=== PATIENT | male | born 1955 | race Caucasian/White ===

== ENCOUNTER 2017-01-04 19:45 | Observation (INO) | payer OTHER, BC ==
[2017-01-04] MEDS ORDERED: Morphine 10 MG/ML Syringe IV ONE (19:52)
[2017-01-04] MEDS ORDERED: Ondansetron 4 MG/2 ML SDV IVPUSH ONE (19:52)
[2017-01-04] MEDS ORDERED: Diphtheria,Pertussis(Acell),Tetanus Vaccine 0.5 ML Syringe IM ONE (19:53)
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
[2017-01-04] MEDS ORDERED: Morphine 2 MG/ML Syringe IVPUSH ONE (20:08)
[2017-01-04] MEDS ORDERED: ceFAZolin 2 GM in Premix Bag 1 BAG IV ONE (21:03)
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
[2017-01-04] MEDS ORDERED: Lactated Ringers 1,000 ML IV SCH (21:30)
[2017-01-04] MEDS ORDERED: Acetaminophen/HYDROcodone 325-10 MG Tab PO PRN (21:30)
[2017-01-04] MEDS ORDERED: Ondansetron 4 MG/2 ML SDV IVPUSH PRN (21:30)
[2017-01-04] MEDS ORDERED: HYDROmorphone 1 MG/ML Syringe IVPUSH PRN (21:30)
--- NOTE | 2017-01-04 21:31 | PCM.PREANE ---
Preanesthetic Assessment - Anesthesia/Transfusion/Family Hx Anesthesia History: Prior Anesthesia Without Reaction Family History of Anesthesia Reaction: No Intubation History: Unknown - Review of Systems General: No Symptoms Pulmonary: No Symptoms Cardiovascular: No Symptoms Gastrointestinal: No symptoms Neurological: No Symptoms Other: Reports: None - Physical Assessment NPO Status Date: 01/04/17 NPO Status Time: 15:00 (sip of soda @ approx 1800) O2 Sat by Pulse Oximetry: 96 Respiratory Rate: 14 Vital Signs: Last Vital Signs Temp 98.4 F 01/04/17 19:45 Pulse 83 01/04/17 19:45 Resp 14 01/04/17 19:45 BP 175/113 H 01/04/17 19:45 Pulse Ox 96 01/04/17 19:45 Height: 6 ft 2 in Weight: 228 lb 6.382 oz ASA Class: 2E Mental Status: Alert & Oriented x3 Airway Class: Mallampati = 4 Dentition: Reports: Normal Dentition Thyro-Mental Finger Breadths: 3 Mouth Opening Finger Breadths: 2 ROM/Head Extension: Full Lungs: Clear to auscultation, Normal respiratory effort Cardiovascular: Regular Rate, Regular Rhythm - Allergies Allergies/Adverse Reactions: Allergies Allergy/AdvReac Type Severity Reaction Status Date / Time No Known Allergies Allergy Verified 01/04/17 19:56 - Blood Blood Available: No Product(s) Available: None - Anesthesia Plan Free Text/Narrative:: GETA vs Protector LMA Med Last Dose Date: 01/04/17 Med Last Dose Time: 08:00 (States took BP med this AM - doesn't know name) - Acknowledgements Anesthesia Type Planned: General Anesthesia Pt an Appropriate Candidate for the Planned Anesthesia: Yes Alternatives and Risks of Anesthesia Discussed w Pt/Guardian: Yes Pt/Guardian Understands and Agrees with Anesthesia Plan: Yes PreAnesthesia Questionnaire Cardiovascular History: Reports: High cholesterol, Hypertension. Denies: CAD - Past Surgical History Head Surgeries/Procedures: Reports: Other (see below) (patient states he has had surgery in the distant past, no problems with anesthesia) - History Comment History Comment: patient states he is on a medicine for HTN and high cholesterol. He is unsure of names/dosage. Nursing attempted to contact pharmacy to verify but they are closed. - SUBSTANCE USE Smoking Status *Q: Current Every Day Smoker Tobacco Use Within Last Twelve Months: Cigarettes (~1 pack per week) Days Per Week of Alcohol Use: 7 Number of Drinks Per Day: 6 Total Drinks Per Week: 42 Recreational Drug Use History: No - HOME MEDS Home Medications: Home Meds . [Unable to Verify Home Med List] 01/04/17 [History] - CURRENT (IN HOUSE) MEDS Current Meds: Current Medications Cefazolin Sodium/Dextrose 2 gm (/ Premix) 50 mls @ 100 mls/hr IV ONETIME ONE Stop: 01/04/17 21:32 Last Admin: 01/04/17 21:19 Dose: 100 mls/hr Discontinued Medications Diphtheria/Tetanus/Acell Pertussis (Adacel) 0.5 ml IM .ONCE ONE Stop: 01/04/17 19:54 Last Admin: 01/04/17 20:12 Dose: 0.5 ml Morphine Sulfate (Morphine) 2 mg IV ONETIME ONE Stop: 01/04/17 19:53 Last Admin: 01/04/17 20:15 Dose: 2 mg Morphine Sulfate (Morphine) 2 mg IVPUSH ONETIME ONE Stop: 01/04/17 20:09 Last Admin: 01/04/17 20:16 Dose: Not Given Ondansetron HCl (Zofran) 4 mg IVPUSH ONETIME ONE Stop: 01/04/17 19:53 Last Admin: 01/04/17 20:12 Dose: 4 mg
[2017-01-04] MEDS ORDERED: Propofol 200 MG/20 ML SDV ONE ×2 (21:48→22:09)
[2017-01-04] MEDS ORDERED: Lidocaine 2% 5 ML SDV ONE (21:48)
[2017-01-04] MEDS ORDERED: fentaNYL 250 MCG/5 ML SDV ONE (21:48)
[2017-01-04] MEDS ORDERED: Midazolam 1 MG/ML 2 ML SDV ONE (21:48)
[2017-01-04] MEDS ORDERED: Ketorolac 30 MG/ML SDV IVPUSH SCH (22:00)
[2017-01-04] MEDS ORDERED: HYDROmorphone 2 MG/ML Syringe ONE (22:31)
[2017-01-04] MEDS ORDERED: fentaNYL 100 MCG/2 ML SDV IVPUSH PRN (22:31)
[2017-01-04] MEDS ORDERED: Ketorolac 30 MG/ML SDV ONE (22:49)
--- NOTE | 2017-01-05 01:07 | PCM.OPNOTE ---
- General Post-Op/Procedure Note Date of Surgery/Procedure: 01/05/17 Operative Procedure(s): ORIF L radius/ulna Post-Op Diagnosis: L radius/ulna fracture Anesthesia Technique: General LMA Primary Surgeon: Anum Perdomo Merchandise Flow Manager: Dorcas Delgado in mLs: 30 Condition: Good Free Text/Narrative:: [id number] min #[id number]
[2017-01-05] MEDS ORDERED: Labetalol 5 MG/ML 5 ML Syringe ONE (01:30)
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
--- NOTE | 2017-01-05 01:48 | PCM.POSTAN ---
POST ANESTHESIA ASSESSMENT - MENTAL STATUS Mental Status: alert, oriented - VITAL SIGNS Pulse Rate: 76 SaO2: 96 Resp Rate: 16 Blood Pressure: 150/98 - RESPIRATORY Respiratory Status: respiratory rate WNL, airway patent, O2 saturation stable, supplemental oxygen (per NC) - CARDIOVASCULAR CV Status: pulse rate WNL, blood pressure stable - GASTROINTESTINAL GI Status: no symptoms - PAIN Pain Score: 0 - POST OP HYDRATION Hydration Status: adequate & stable - OBSERVATIONS Free Text/Narrative:: Pt doing well. Treated with 20mg IV Labetalol and pressure better. Pt denies any pain or nausea at this time. Stable for discharge to phase II recovery.
[2017-01-05] MEDS ORDERED: ceFAZolin 2 GM in Premix Bag 1 BAG IV SCH (05:00)
[2017-01-05] MEDS ORDERED: Ketorolac 30 MG/ML SDV IVPUSH SCH (09:00)
[2017-01-05] MEDS ORDERED: Docusate Sodium 100 MG Cap PO SCH (09:00)
[2017-01-05 09:22] VITALS: BP 129/75
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
--- NOTE | 2017-01-07 08:58 | CR ---
EXAMINATION: Left wrist HISTORY: Surgery COMPARISON: 01/04/2017 TECHNIQUE: 6 fluoroscopic images provided FINDINGS/IMPRESSION: Screw and plate hardware fixate the distal radius and ulna in near anatomic pos ition. The proximal radius fracture is not well characterized.
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
== END 2017-01-05 10:50 | disposition home or self-care (01) ==
LOC: MW.ED 19:45 → MW.SDS 21:06 → MW.MS 23:00
PROVIDERS: ADMIT Orthopaedic Surgery; ATTEND Orthopaedic Surgery
PROC: 0PSJ04Z Reposition Left Radius with Internal Fixation Device, Open Approach (ICD-10-PCS; principal; 2017-01-04)
PROC: 0PSL04Z Reposition Left Ulna with Internal Fixation Device, Open Approach (ICD-10-PCS; 2017-01-04)
DX: S52.352A Displaced comminuted fracture of shaft of radius, left arm, initial encounter for closed fracture (principal); S52.252A Displaced comminuted fracture of shaft of ulna, left arm, initial encounter for closed fracture; S52.132A Displaced fracture of neck of left radius, initial encounter for closed fracture; F17.210 Nicotine dependence, cigarettes, uncomplicated; I10 Essential (primary) hypertension; E78.00 Pure hypercholesterolemia, unspecified; Z98.890 Other specified postprocedural states
CPT/HCPCS: 24665; 25575; 73060; 73080; 73090; 76001; 90471; 90715; 96365; 96375; 99285; A9270; J0690; J1170; J1885; J2250; J2270; J2405; J3010; J7120; 01830; C1713; G0378; J2704

== ENCOUNTER → 2017-01-15 | Outpatient (CLI) | payer OTHER, BC ==
--- NOTE | 2017-01-15 15:30 | CR ---
EXAMINATION: Left forearm and left elbow HISTORY: Pain COMPARISON: 01/04/2017 TECHNIQUE: 2 views of the left forearm and 3 views of the left elbow FINDINGS: There is screw and plate hardware fixating distal radius and ulna fractures in near anatom ic alignment. There is also a nondisplaced proximal radius fracture identified with a small elbow ludivina int effusion. Bone mineralization otherwise appears normal. IMPRESSION: 1. Screw and plate hardware fixating distal radius and ulna fractures. 2. Nondisplaced proximal radius fracture the left elbow joint effusion.
== END ==
LOC: MW.CHORTHO 07:47
PROVIDERS: ATTEND Physician Assistant
DX: M79.602 Pain in left arm (principal); S52.592A Other fractures of lower end of left radius, initial encounter for closed fracture; S52.602A Unspecified fracture of lower end of left ulna, initial encounter for closed fracture; Z96.7 Presence of other bone and tendon implants; S52.102A Unspecified fracture of upper end of left radius, initial encounter for closed fracture; M25.422 Effusion, left elbow
CPT/HCPCS: 73080-26-LT; 73080-LT; 73090-26-LT; 73090-LT